=== PATIENT | female | born 1945 | race Caucasian/White ===

== ENCOUNTER 2018-02-10 12:30 | Emergency (ER) | payer MEDICARE ==
[~2018-02-10] VITALS: Ht 152.4 cm; Wt 49.9 kg
[2018-02-10] MEDS ORDERED: HYDROCODONE/APAP 5MG-325MG TAB PO ONE (12:45)
[2018-02-10] MEDS ORDERED: HYDROCODONE/APAP 5MG-325MG TAB PO NR (13:00)
--- NOTE | 2018-02-10 13:41 | Diagnostic Imaging Report ---
KNEE RIGHT THREE VIEWS - 3 views HISTORY: Pain. Foot. Fell from ladder. COMPARISON: None available. FINDINGS: Bones: No acute displaced fracture. Osseous alignment is within normal limits. Joints: The joint spaces are well-maintained. Moderate suprapatellar joint effusion. Soft tissues: The soft tissues appear unremarkable. IMPRESSION: No acute radiographic abnormality. Moderate suprapatellar joint effusion. Signed by: Dr. Jl Maya M.D. on 02/10/2018 1:38 PM
--- NOTE | 2018-02-10 13:43 | Diagnostic Imaging Report ---
FOOT RIGHT COMPLETE - 3 views HISTORY: Pain. COMPARISON: None available. FINDINGS: Bones: No acute displaced fracture. Osseous alignment is within normal limits. Dorsal calcaneal enthesophyte. Joints: The joint spaces are well-maintained. Soft tissues: Diffuse soft tissue swelling. IMPRESSION: Diffuse soft tissue swelling. No acute osseous abnormalities. Signed by: Dr. Jl Maya M.D. on 02/10/2018 1:40 PM
[2018-02-10] MEDS ORDERED: ULTRAM50 MG PO (13:56)
== END 2018-02-10 14:30 | disposition home or self-care (01) ==
LOC: ER 12:30
DX: S93.491A Sprain of other ligament of right ankle, initial encounter (principal); S83.411A Sprain of medial collateral ligament of right knee, initial encounter; S83.421A Sprain of lateral collateral ligament of right knee, initial encounter; W11.XXXA Fall on and from ladder, initial encounter; Y92.008 Other place in unspecified non-institutional (private) residence as the place of occurrence of the external cause
CPT/HCPCS: 99283

== ENCOUNTER 2018-04-20 08:27 | Inpatient (IN) | payer MEDICARE ==
[~2018-04-20] VITALS: Ht 152.4 cm; Wt 51.0 kg
[~2018-04-20 08:27] MED LIST: ULTRAM50 MG PO
--- OUTSIDE RECORDS SUMMARY | 2018-04-20 08:29 | XMS REPORT ---
Author Author [facility] Address Unknown Phone Unavailable Care Team Providers Care Production Supervisor Trainee Name Role Phone Leighann DON Unavailable Unavailable Problems This patient has no known problems. Allergies, Adverse Reactions, Alerts This patient has no known allergies or adverse reactions. Medications This patient has no known medications. Results Test Description Test Time Test Comments Text Results Atomic Results Result Comments FOOT RIGHT COMPLETE 2018-02-10 13:39:00 [facility] [address] [place] [address] Patient Name: CURRY KILPATRICK MR #: [id number] : 1945 Age/Sex: 73/F Req #: [id number] Adm Physician: Ordered by: JOHN DON MD Report #: [id number] Location: ER Room/Bed: Procedure: [id number] DX/FOOT RIGHT COMPLETE Exam Date: Exam Time: REPORT STATUS: Signed FOOT RIGHT COMPLETE - 3 views HISTORY: Pain. COMPARISON: None available. FINDINGS: Bones: No acute displaced fracture. Osseous alignment is within normal limits. Dorsal calcaneal enthesophyte. Joints: The joint spaces are well-maintained. Soft tissues: Diffuse soft tissue swelling. IMPRESSION: Diffuse soft tissue swelling. No acute osseous abnormalities. Signed by: Dr. Luis Manuel Maya M.D. on 02/10/2018 1:40 PM Dictated By: LUI SMANUEL MAYA MD 39 Transcribed By: MARILYN on 02/10/181339 COPY TO: JOHN DON MD KNEE RIGHT THREE VIEWS 2018-02-10 13:37:00 [place] [address] Patient Name: CURRY KILPATRICK MR #: [id number] : 1945 Age/Sex: 73/F Req #: [id number] Adm Physician: Ordered by: JOHN DON MD Report #: [id number] Location: ER Room/Bed: Procedure: [id number] DX/KNEE RIGHT THREE VIEWS Exam Date: Exam Time: REPORT STATUS: Signed KNEE RIGHT THREE VIEWS - 3 views HISTORY: Pain. Foot. Fell from ladder. COMPARISON: None available. FINDINGS: Bones: No acute displaced fracture. Osseous alignment is within normal limits. Joints: The joint spaces are well-maintained. Moderate suprapatellar joint effusion. Soft tissues: The soft tissues appear unremarkable. IMPRESSION: No acute radiographic abnormality. Moderate suprapatellar joint effusion. Signed by: Dr. Luis Manuel Maya M.D. on 02/10/2018 1:38 PM Dictated By: LUIS MANUEL MAYA MD 37 Transcribed By: MARILYN on 02/10/181337 COPY TO: JOHN DON MD
[2018-04-20] MEDS ORDERED: SODIUM CHLORIDE 0.9% 1000ML 1,000 ML IV STA (08:44)
[2018-04-20 09:08] LABS: BASOPHILS % 0.3 % (0.0-1.0); EOSINOPHILS % 0.2 % (0.0-6.0); HEMATOCRIT 36.1 % (34.2-44.1); HEMOGLOBIN 12.1 g/dL (12.0-16.0); LYMPHOCYTES # (AUTO) 0.9 (1.0-3.2); LYMPHOCYTES % 7.1 % (18.0-39.1); MEAN CORPUSCULAR HEMOGLOBIN 32.4 pg (28-32); MEAN CORPUSCULAR HGB CONC 33.5 g/dL (31-35); MEAN CORPUSCULAR VOLUME 96.5 fL (81-99); MONOCYTES # (AUTO) 1.2 (0.2-0.8); MONOCYTES % 10.2 % (4.4-11.3); NEUTROPHILS # (AUTO) 9.9 (2.1-6.9); NEUTROPHILS % 81.3 % (38.7-80.0); PLATELET COUNT 416 x10e3/uL (140-360); RED BLOOD COUNT 3.74 x10e6/uL (3.6-5.1); RED CELL DISTRIBUTION WIDTH 13.3 % (11.7-14.4)
--- NOTE | 2018-04-20 09:20 | Diagnostic Imaging Report ---
EXAMINATION: CHEST 2 VIEWS COMPARISON: None FINDINGS: TUBES and LINES: None. LUNGS: The lungs are mildly hyperinflated. Patchy consolidative opacity in the left lung base and mild patchy right basilar opacity. No evidence of pulmonary edema. Nodular opacities project over the right mid and left upper lung. PLEURA: No pleural effusion or pneumothorax. HEART AND MEDIASTINUM: The cardiomediastinal silhouette is unremarkable. BONES AND SOFT TISSUES: No acute osseous lesion. Soft tissues are unremarkable. UPPER ABDOMEN: No free air under the diaphragm. IMPRESSION: Multifocal patchy opacities, suspicious for pneumonia in a patient with cough. Additional nodular opacities in the right mid and left upper lung which could be infectious in the acute setting. Follow-up chest radiograph is recommended in 8 weeks to assess for resolution. Signed by: Dr. Ankit Davila MD on 04/20/2018 9:16 AM
[2018-04-20 09:29] LABS: ALANINE AMINOTRANSFERASE 38 IU/L (0-55); ALBUMIN 2.9 g/dL (3.5-5.0); ALBUMIN/GLOBULIN RATIO 0.6 (0.8-2.0); ALKALINE PHOSPHATASE 276 IU/L (40-150); ANION GAP 20.3 mmol/L (8-16); BLOOD UREA NITROGEN 12 mg/dL (7-26); BUN/CREATININE RATIO 15 (6-25); CALCIUM 9.9 mg/dL (8.4-10.2); CARBON DIOXIDE 24 mmol/L (22-29); CHLORIDE 97 mmol/L (98-107); CREATININE, SERUM 0.81 mg/dL (0.57-1.11); EST GLOMERULAR FILTRATION RATE > 60 ML/MIN (60-); GLUCOSE 95 mg/dL (74-118); POTASSIUM 4.3 mmol/L (3.5-5.1); SODIUM 137 mmol/L (136-145)
[2018-04-20] MEDS ORDERED: CEFTRIAXONE SOD 1 GM VIAL IV STA (09:35)
[2018-04-20] MEDS ORDERED: AZITHROMYCIN 500MG/NS 250 ML 250 ML IV STA (09:35)
[2018-04-20] MEDS ORDERED: CEFTRIAXONE SOD 1 GM/NS 50 ML 50 ML IV ONE (09:45)
[2018-04-20 09:49] LABS: THYROID STIMULATING HORMONE 1.075 uIU/mL (0.350-4.940)
[2018-04-20] MEDS ORDERED: ALBUTEROL SULF 0.083% NEB SOLN 3 ML NEB NEB STA (10:15)
[2018-04-20] MEDS ORDERED: IPRATROPIUM BROMIDE 0.02% 2.5 ML NEB NEB ONE (10:15)
[2018-04-20 11:06] LABS: CLARITY,URINE HAZY (CLEAR); COLOR,URINE YELLOW (YELLOW); LEUKOCYTE ESTERASE ,URINE NEGATIVE (NEGATIVE); NITRITE,URINE POSITIVE (NEGATIVE)
[2018-04-20 11:07] LABS: BACTERIA,URINE MODERATE /HPF; BILIRUBIN,URINE 1+ (NEGATIVE); EPITHELIAL CELLS,URINE MODERATE /LPF; KETONES,URINE 1+ (NEGATIVE); PROTEIN,URINE DIPSTICK 1+ (NEGATIVE); URINE UROBILINOGEN 1 mg/dL (0.2 - 1)
[2018-04-20] MEDS ORDERED: CEFTRIAXONE SOD 1 GM VIAL IV SCH (12:00)
[2018-04-20] MEDS ORDERED: AZITHROMYCIN 500MG/SOD CHL 0.9% 250ML BAG IV SCH (12:00)
[2018-04-20] MEDS: ALBUTEROL SULF 0.083% NEB SOLN 3 ML NEB NEB SCH ×3 (12:30→19:20)
[2018-04-20] MEDS: IPRATROPIUM BROMIDE 0.02% 2.5 ML NEB NEB SCH ×2 (12:57→19:20)
[2018-04-20 14:28] LABS: CREATINE KINASE MB 0.8 ng/mL (0-5.0)
[2018-04-20] MEDS: SODIUM CHLORIDE 0.9% 1000ML 1,000 ML IV SCH ×2 (15:30→19:54)
--- NOTE | 2018-04-20 17:05 | NUR ---
ATTEMPTED TO CALL REPORT, NURSE UNAVAILABLE AT THIS TIME. INFORMED MY CHARGE NURSE, DIEGO NAGEL.
--- NOTE | 2018-04-20 18:16 | NUR ---
REPORT CALLED TO DIEGO TREVINO. FLU SWAB COLLECTED AND SENT TO LAB. PT AWARE SPUTUM SAMPLE NEEDED.
[2018-04-20 18:39] VITALS: BP 167/76
--- NOTE | 2018-04-20 18:42 | NUR ---
PT ARRIVED TO FLOOR VIA STRETCHER, RESP EVEN AND UNLABORED AT THIS TIME, NO PAIN WHEN ASKED, NO SOB INDICATED, PT ABLE TO MAKE NEEDS KNOWN, PT HAS FAMILY MEMBER AT BEDSIDE, PT ORIENTED TO ROOM AND CALL LIGHT, BED IN LOWEST POSITION, BED RAILS UP X2, CALL LIGHT IN REACH.
--- NOTE | 2018-04-20 19:40 | NUR ---
REPORT GIVEN TO ONCOMING NURSE, FOR CONTINUED CARE.
--- NOTE | 2018-04-20 19:45 | NUR ---
Patient received sitting up in bed receiving breathing treatment; at bedside. Admission history and Initial Physical assessment conducted. Patient is alert and oriented x 3. No complaints of pain. No signs of respiratory distress. Patient oriented to room , call light and plan of care. IVF infusing at 125 cc / hr. Bed locked and in lowest position. Bed rails up x 2. Patient instructed to call for assistance when needed. Call light within reach.
[2018-04-20 20:00] VITALS: BP 157/69
[2018-04-20 20:15] VITALS: BP 157/69
[2018-04-20] MEDS: HEPARIN SOD (PORCINE) 5,000 UNIT/ML VIAL SC SCH (20:35)
[2018-04-20 20:44] VITALS: BP 157/69
--- NOTE | 2018-04-20 21:05 | NUR ---
Urine specimen sent to lab for analysis.
[2018-04-20] MEDS ORDERED: BENZONATATE 100 MG CAP PO STA (23:31)
--- NOTE | 2018-04-20 23:35 | NUR ---
Patient complained of cough and inability to sleep. Dr. Monika Todd notified. New orders received.
[2018-04-21] VITALS (8 sets, daily range): BP systolic 155–175; BP diastolic 69–86
[2018-04-21] MEDS: ZOLPIDEM TARTRATE 5 MG TAB PO PRN ×2 (00:06→20:25)
[2018-04-21] MEDS: IPRATROPIUM BROMIDE 0.02% 2.5 ML NEB NEB SCH ×2 (00:30→07:10)
[2018-04-21] MEDS: ALBUTEROL SULF 0.083% NEB SOLN 3 ML NEB NEB SCH ×4 (00:30→11:10)
[2018-04-21] MEDS: SODIUM CHLORIDE 0.9% 1000ML 1,000 ML IV SCH ×2 (03:54→11:54)
[2018-04-21 04:49] LABS: BASOPHILS % 0.3 % (0.0-1.0); EOSINOPHILS % 0.2 % (0.0-6.0); HEMATOCRIT 29.5 % (34.2-44.1); HEMOGLOBIN 9.7 g/dL (12.0-16.0); LYMPHOCYTES # (AUTO) 1.1 (1.0-3.2); LYMPHOCYTES % 9.5 % (18.0-39.1); MEAN CORPUSCULAR HGB CONC 32.9 g/dL (31-35); MEAN CORPUSCULAR VOLUME 97.4 fL (81-99); MONOCYTES # (AUTO) 1.1 (0.2-0.8); MONOCYTES % 9.2 % (4.4-11.3); NEUTROPHILS # (AUTO) 9.5 (2.1-6.9); NEUTROPHILS % 79.4 % (38.7-80.0); PLATELET COUNT 349 x10e3/uL (140-360); RED BLOOD COUNT 3.03 x10e6/uL (3.6-5.1); RED CELL DISTRIBUTION WIDTH 13.6 % (11.7-14.4)
[2018-04-21 05:05] LABS: ANION GAP 16.6 mmol/L (8-16); BLOOD UREA NITROGEN 7 mg/dL (7-26); BUN/CREATININE RATIO 10 (6-25); CALCIUM 8.5 mg/dL (8.4-10.2); CARBON DIOXIDE 21 mmol/L (22-29); CHLORIDE 105 mmol/L (98-107); CREATININE, SERUM 0.69 mg/dL (0.57-1.11); EST GLOMERULAR FILTRATION RATE > 60 ML/MIN (60-); GLUCOSE 97 mg/dL (74-118); POTASSIUM 3.6 mmol/L (3.5-5.1); SODIUM 139 mmol/L (136-145)
--- NOTE | 2018-04-21 06:39 | Diagnostic Imaging Report ---
EXAM: CHEST SINGLE (PORTABLE), AP 1 view INDICATION: Bad cough COMPARISON: AP view of the chest April 20, 2018 FINDINGS: LINES/TUBES: None LUNGS: Worsening bilateral airspace opacities. PLEURA: No effusions or pneumothorax. HEART AND MEDIASTINUM: Normal size and contour. BONES AND SOFT TISSUES: No acute findings. IMPRESSION: Worsening multifocal pneumonia. Signed by: Dr. Estefania Kenny M.D. on 04/21/2018 6:35 AM
--- NOTE | 2018-04-21 07:15 | NUR ---
Shift report given to oncoming nurse. Patient in stable condition.
[2018-04-21] MEDS: HEPARIN SOD (PORCINE) 5,000 UNIT/ML VIAL SC SCH ×2 (08:40→20:26)
--- NOTE | 2018-04-21 08:40 | NUR ---
PT RECEIVED LYING IN BED, AA/O X3. ASSESSMENT COMPLETE, VSS, TACHYCARDIC. IN NO APPARENT DISTRESS, RECEIVES NEB TREATMENTS. AMBULATES TOLERATED. CONTINUES IVABT.
[2018-04-21] MEDS ORDERED: CEFTRIAXONE SOD 1 GM/NS 50 ML 50 ML IV SCH (09:00)
[2018-04-21] MEDS ORDERED: BENZONATATE 100 MG CAP PO SCH (09:00)
[2018-04-21] MEDS: AZITHROMYCIN 500MG/NS 250 ML 250 ML IV SCH (09:15)
[2018-04-21] MEDS ORDERED: CEFEPIME HCL 2 GM VIAL IV SCH (13:15)
[2018-04-21] MEDS ORDERED: METHYLPREDNISOLONE SOD SUCC 40 MG/ML VIAL IV NR (13:30)
[2018-04-21] MEDS: CEFEPIME 2 GM/NS 0.9% 100 ML 100 ML IV SCH (14:07)
[2018-04-21] MEDS ORDERED: IPRATROPIUM BROMIDE 0.02% 2.5 ML NEB NEB SCH (15:00)
--- NOTE | 2018-04-21 15:00 | NUR ---
PT VOICED SHE CLEANS NEW 'S HOUSE AND REPORTED ALOT OF DUST AND POSSIBLE MOLD. SHE FEELS THIS MAY BE THE CAUSE OF HER COUGHING. ADVISED A SPUTUM CX SENT AND PENDING. ADVISED TO INFORM
[2018-04-21] MEDS: BENZONATATE 100 MG CAP PO SCH (16:56)
--- NOTE | 2018-04-21 17:28 | Diagnostic Imaging Report ---
EXAM: CT Chest without contrast COMPARISON: Chest radiograph 04/21/18. TECHNIQUE: Chest was scanned utilizing a multidetector helical scanner from the lung apex through the level of the adrenal glands without administration of IV contrast. Coronal and sagittal reformations were obtained. Routine protocol was performed. RADIATION DOSE: Total DLP: 226.6 mGy*cm COMPLICATIONS: None FINDINGS: LINES/ TUBES: None. LUNGS AND AIRWAYS: Multifocal patchy and consolidative opacities in all lobes, most confluent in the left lower lobe and lingula. Some of the opacities have a more nodular appearance, for example measuring up to 1.9 cm in the left lower lobe on series 2, image 65. Motion artifact limits evaluation of the central airways. No evidence of bronchiectasis. Mild smooth interlobular septal thickening bilaterally. Motion artifact limits evaluation for lungs nodules. PLEURA: Trace right pleural effusion. No evidence of pneumothorax. HEART AND MEDIASTINUM: The thyroid gland is normal. Prominent paratracheal lymph node measuring up to 1.1 cm and subcarinal lymph node measuring up to 1.5 cm, likely reactive. The heart is normal in size.. There is no pericardial effusion. Coronary atherosclerosis. Atherosclerotic calcifications of the thoracic aorta and branch vessels. UPPER ABDOMEN: Limited non-contrast views of the upper abdomen show no definite abnormality in the partially visualized liver or spleen. BONES/SOFT TISSUES: No acute bony findings. IMPRESSION: Findings consistent with multilobar pneumonia as above. Given somewhat nodular appearance of some areas of consolidation, follow-up imaging in 6-8 weeks to assess for resolution is recommended. No evidence of bronchiectasis as clinically queried. Mild interlobular septal thickening likely represent pulmonary interstitial edema. Trace right pleural effusion. Signed by: Dr. Ankit Davila MD on 04/21/2018 5:24 PM
[2018-04-22] VITALS (7 sets, daily range): BP systolic 151–170; BP diastolic 67–80
[2018-04-22] MEDS: BENZONATATE 100 MG CAP PO SCH ×2 (01:17→15:41)
[2018-04-22] MEDS: CEFEPIME 2 GM/NS 0.9% 100 ML 100 ML IV SCH ×2 (01:17→13:30)
[2018-04-22] MEDS: HEPARIN SOD (PORCINE) 5,000 UNIT/ML VIAL SC SCH ×2 (08:10→21:39)
[2018-04-22] MEDS: AZITHROMYCIN 500MG/NS 250 ML 250 ML IV SCH (08:10)
--- NOTE | 2018-04-22 08:10 | NUR ---
PT RECEIVED LYING IN BED, AA/O X3. ASSESSMENT COMPLETE, VSS. IN NO APPARENT RESP DISTRESS, RECEIVES NEB TREATMENTS. AMBULATES TOLERATED. CONTINUES IVABT.
[2018-04-22] MEDS ORDERED: CEFTRIAXONE SOD 1 GM VIAL IV SCH (14:00)
[2018-04-22] MEDS ORDERED: HYDRALAZINE HCL 20 MG/ML VIAL IV PRN (14:00)
[2018-04-22] MEDS ORDERED: CEFTRIAXONE SOD 1 GM/NS 50 ML 50 ML IV SCH (14:15)
[2018-04-22] MEDS: ZOLPIDEM TARTRATE 5 MG TAB PO PRN (22:05)
[2018-04-23] VITALS (9 sets, daily range): BP systolic 153–183; BP diastolic 70–90
[2018-04-23] MEDS: BENZONATATE 100 MG CAP PO SCH ×2 (01:30→16:38)
[2018-04-23 04:50] LABS: BASOPHILS # (AUTO) 0.1 (0.0-0.1); BASOPHILS % 0.3 % (0.0-1.0); HEMATOCRIT 31.6 % (34.2-44.1); HEMOGLOBIN 10.8 g/dL (12.0-16.0); LYMPHOCYTES % 5.7 % (18.0-39.1); MEAN CORPUSCULAR HEMOGLOBIN 32.2 pg (28-32); MEAN CORPUSCULAR HGB CONC 34.2 g/dL (31-35); MEAN CORPUSCULAR VOLUME 94.3 fL (81-99); MONOCYTES % 5.5 % (4.4-11.3); NEUTROPHILS # (AUTO) 15.1 (2.1-6.9); NEUTROPHILS % 83.7 % (38.7-80.0); PLATELET COUNT 413 x10e3/uL (140-360); RED BLOOD COUNT 3.35 x10e6/uL (3.6-5.1); RED CELL DISTRIBUTION WIDTH 13.6 % (11.7-14.4)
[2018-04-23 05:10] LABS: ANION GAP 15.5 mmol/L (8-16); BLOOD UREA NITROGEN 12 mg/dL (7-26); BUN/CREATININE RATIO 17 (6-25); CALCIUM 8.6 mg/dL (8.4-10.2); CARBON DIOXIDE 22 mmol/L (22-29); CHLORIDE 100 mmol/L (98-107); CREATININE, SERUM 0.71 mg/dL (0.57-1.11); EST GLOMERULAR FILTRATION RATE > 60 ML/MIN (60-); GLUCOSE 105 mg/dL (74-118); POTASSIUM 3.5 mmol/L (3.5-5.1); SODIUM 134 mmol/L (136-145)
--- NOTE | 2018-04-23 07:00 | NUR ---
RCD PT AT BED PT IS ALERT AND ORIENTED PT RESTING ON BED FAMILY AT BED SIDE BED LOW AND LOCKED CALL LIGHT IN REACH
[2018-04-23 07:36] LABS: BAND NEUTROPHILS % (MANUAL) 2 %; LYMPHOCYTES % (MANUAL) 4 % (19-48); METAMYELOCYTES % (MANUAL) 3 % (0-0); MONOCYTES % (MANUAL) 4 % (3.4-9.0); NEUTROPHILS % (MANUAL) 86 % (40-74)
[2018-04-23 07:37] LABS: ANISOCYTOSIS SLIGHT; HYPOCHROMASIA SLIGHT; PLATELET ESTIMATE ADEQUATE; PLATELET MORPHOLOGY COMMENT NORMAL; RBC MORPHOLOGY COMMENT NORMAL
[2018-04-23] MEDS: AZITHROMYCIN 500MG/NS 250 ML 250 ML IV SCH (09:00)
[2018-04-23] MEDS: HEPARIN SOD (PORCINE) 5,000 UNIT/ML VIAL SC SCH ×2 (09:00→20:52)
[2018-04-23] MEDS ORDERED: VANCOMYCIN 1GM/NS 250 ML 250 ML IV ONE (13:15)
[2018-04-23] MEDS ORDERED: SODIUM CHLORIDE 0.9% 1000ML 1,000 ML IV ONE (13:30)
[2018-04-23] MEDS: PIPER-TAZ 3.375 GM 50 ML IV SCH ×2 (14:00→21:18)
--- NOTE | 2018-04-23 14:29 | NUR ---
Reimbursement Coordinator to bedside to discuss plan of care with patient/family. CM/SW role and care transitions discussed. Anticipated discharge plan discussed along with duration of care. CM/SW discussed patients right to make decisions in care. CM/SW work hours given. Patient lives: with and daughter Admit/Transfer: thru ED, from home POA/Emergency contact: Cornelius Morrison [phone] Current/Previous Home Health: none PCP/Follow-up Care: no PCP, but states she will follow up at [facility] after discharge Current/Previous DME: none Other Services: none Employment Status: retired Areas of Concerns: pneumonia, hematuria Referral Needs: none at this time Education Needs: medical management IMM/JOHN given and signed (if applicable): none at this time Goal for discharge: home, will provide transportation CM/SW left business card at the bedside with contact information. Name and number was also written on the patients whiteboard. Patient verbalized understanding of discussion. CM will follow-up with ongoing discharge and transition of care needs.
--- NOTE | 2018-04-23 15:51 | Consultation ---
DATE OF CONSULTATION: PULMONARY CRITICAL CARE CONSULTATION CHIEF COMPLAINT: Bilateral infiltrates, fever and cough. HISTORY OF PRESENT ILLNESS: The patient is a 73-year-old woman with no past medical history. She states that about 3 to 4 weeks ago she was cleaning an old house and swallowed some dust. Since that time, she has noted a cough and congestion. It has been gradually progressing over 3 to 4 weeks. She noticed some mild fevers and a decreased appetite. She came to the emergency department 2 days ago and started receiving IV antibiotics with minimal benefit. PAST SURGICAL HISTORY: Status post tonsillectomy as a child. PAST MEDICAL HISTORY 1. No prior respiratory problems. 2. No regular medication use. ALLERGIES: NO KNOWN DRUG ALLERGIES. SOCIAL HISTORY: The patient is not a smoker. She is not a drinker. She does not have any birds at home. She has no recent travel. No one else has been sick at home. FAMILY HISTORY: Noncontributory. REVIEW OF SYSTEMS: Patient reports decreased appetite and low-grade fevers at home. She has no headache. She does not complain of sore throat. There is no swollen glands. Lymphatic examination shows she has no pain in her chest. She does note a cough productive of very small amounts of phlegm. She has dyspnea. There is no abdominal pain. No nausea or vomiting. No leg swelling. No rashes. PHYSICAL EXAMINATION VITAL SIGNS: The patient is afebrile. Vital signs are stable. The T-max is 99.7 on April 21, 2018. HEENT: Shows no facial swelling or erythema. The nasal mucosa is normal. The oropharynx is normal. LYMPHATIC: Shows no submandibular, cervical or supraclavicular adenopathy. NECK: Shows no JVD or thyromegaly. There is no nuchal rigidity. CARDIAC: Reveals regular rate and rhythm with a normal S1 and S2. LUNGS: Reveals a few crackles at both bases. There is no wheezing. ABDOMEN: Soft and nontender. There is no rebound or guarding. EXTREMITIES: Shows no leg edema or calf tenderness. There is no cyanosis or clubbing. SKIN: Shows no rashes. NEUROLOGIC: Shows no focal abnormalities. RADIOGRAPHIC DATA: CT scan of the chest shows multifocal infiltrates most pronounced in the left lower lobe lingula. LABORATORY DATA: Urinalysis shows specific gravity of 1.015 with trace blood and 11-20 white blood cells. The sodium is 134 and the BUN to creatinine ratio is normal. The other electrolytes are within normal limits. Liver function tests are normal except for an alk phos of 276. White blood cell count is 18 and the hemoglobin is 10.8 with an MCV of 94.3. The platelet count is 413,000. IMPRESSION 1. Community-acquired multilobar pneumonia with sepsis present on admission. 2. Leukocytosis. PLAN 1. Continue antibiotics. 2. Patient should have a nasopharyngeal aspirate for influenza culture; the rapid flu does not exclude a influenza completely. 3. Nasal swab for MRSA and vancomycin temporarily until staph has been ruled out. 4. Swallowing evaluation to rule out aspiration. 5. Repeat chest x-ray tomorrow. 6. Await final sputum culture results. Job#: [id number] NICK
--- NOTE | 2018-04-23 18:39 | NUR ---
PT RESTING ON BED BED SIDE REPORT GIVEN TO ONCOMING NURSE
--- NOTE | 2018-04-23 19:00 | NUR ---
Received change of shift report from AM nurse. Walking rounds completed.
--- NOTE | 2018-04-23 21:00 | NUR ---
Patient AAOx3. IV to left wrist dry and intact. NS at 100cc/hr. Family at bedside. Pt denies pain at this time.
[2018-04-24] VITALS (7 sets, daily range): BP systolic 135–153; BP diastolic 63–72
[2018-04-24 04:35] LABS: BASOPHILS % 0.3 % (0.0-1.0); EOSINOPHILS % 0.1 % (0.0-6.0); HEMATOCRIT 32.5 % (34.2-44.1); HEMOGLOBIN 10.9 g/dL (12.0-16.0); LYMPHOCYTES # (AUTO) 1.2 (1.0-3.2); LYMPHOCYTES % 8.6 % (18.0-39.1); MEAN CORPUSCULAR HGB CONC 33.5 g/dL (31-35); MEAN CORPUSCULAR VOLUME 95.3 fL (81-99); MONOCYTES # (AUTO) 0.9 (0.2-0.8); MONOCYTES % 6.1 % (4.4-11.3); NEUTROPHILS # (AUTO) 11.6 (2.1-6.9); NEUTROPHILS % 80.6 % (38.7-80.0); PLATELET COUNT 365 x10e3/uL (140-360); RED BLOOD COUNT 3.41 x10e6/uL (3.6-5.1); RED CELL DISTRIBUTION WIDTH 13.6 % (11.7-14.4)
[2018-04-24 04:57] LABS: ALANINE AMINOTRANSFERASE 33 IU/L (0-55); ALBUMIN 2.2 g/dL (3.5-5.0); ALBUMIN/GLOBULIN RATIO 0.5 (0.8-2.0); ALKALINE PHOSPHATASE 167 IU/L (40-150); ANION GAP 16.5 mmol/L (8-16); BLOOD UREA NITROGEN 7 mg/dL (7-26); BUN/CREATININE RATIO 10 (6-25); CALCIUM 8.4 mg/dL (8.4-10.2); CARBON DIOXIDE 23 mmol/L (22-29); CHLORIDE 102 mmol/L (98-107); CREATININE, SERUM 0.72 mg/dL (0.57-1.11); EST GLOMERULAR FILTRATION RATE > 60 ML/MIN (60-); GLUCOSE 91 mg/dL (74-118); POTASSIUM 3.5 mmol/L (3.5-5.1); SODIUM 138 mmol/L (136-145)
[2018-04-24] MEDS: PIPER-TAZ 3.375 GM 50 ML IV SCH ×3 (05:27→21:27)
--- NOTE | 2018-04-24 06:23 | NUR ---
Patient resting quitly with no c/o. Patient states I feel better.
--- NOTE | 2018-04-24 07:10 | NUR ---
RCD PT AT BED PT IS ALERT AND ORIENTED PT RESTING ON BED FAMILY AT BED SIDE BED LOW AND LOCKED CALL LIGHT IN REACH
[2018-04-24] MEDS ORDERED: SODIUM CHLORIDE 0.9% 250ML 250 ML ONE (08:49)
[2018-04-24] MEDS: HEPARIN SOD (PORCINE) 5,000 UNIT/ML VIAL SC SCH ×2 (09:00→21:28)
[2018-04-24] MEDS: BENZONATATE 100 MG CAP PO SCH ×2 (09:00→16:29)
[2018-04-24] MEDS: AZITHROMYCIN 500MG/NS 250 ML 250 ML IV SCH (09:00)
--- NOTE | 2018-04-24 09:01 | Diagnostic Imaging Report ---
EXAM: CHEST 2 VIEWS INDICATION: Pneumonia COMPARISON: CT Chest 04/21/18 and Chest radiograph 04/21/18. FINDINGS: LINES/TUBES: None LUNGS: The lungs are mildly hyperinflated. There are multifocal opacities, slightly less confluent in the left lower lung and slightly increased in the right lower lung. No significant pulmonary edema. PLEURA: No effusions or pneumothorax. HEART AND MEDIASTINUM: Unchanged cardiomediastinal silhouette. Atherosclerotic calcifications of the aortic arch. BONES AND SOFT TISSUES: No acute bony findings. IMPRESSION: Multifocal pneumonia, slightly less confluent in the left lower lung and slight increased in the right lower lung. Signed by: Dr. Ankit Davila MD on 04/24/2018 8:58 AM
--- NOTE | 2018-04-24 18:42 | NUR ---
PT RESTING ON BED BED SIDE REPORT GIVEN TO ONCOMING NURSE
[2018-04-25] VITALS (9 sets, daily range): BP systolic 116–160; BP diastolic 58–72
[2018-04-25] MEDS: PIPER-TAZ 3.375 GM 50 ML IV SCH ×3 (06:23→22:30)
--- NOTE | 2018-04-25 07:00 | NUR ---
RCD PT AT BED PT IS ALERT AND ORIENTED PT RESTING ON BED FAMILY AT BED SIDE BED LOW AND LOCKED CALL LIGHT IN REACH
[2018-04-25] MEDS: BENZONATATE 100 MG CAP PO SCH ×2 (09:00→16:17)
[2018-04-25] MEDS: HEPARIN SOD (PORCINE) 5,000 UNIT/ML VIAL SC SCH ×2 (09:00→22:30)
[2018-04-25] MEDS: AZITHROMYCIN 500MG/NS 250 ML 250 ML IV SCH (09:00)
[2018-04-25] MEDS: LACTOBACILLUS ACIDOPHILUS CAPSULE PO SCH ×2 (15:00→22:30)
--- NOTE | 2018-04-25 18:40 | NUR ---
PT RESTING ON BED BED SIDE REPORT GIVEN TO ONCOMING NURSE
--- NOTE | 2018-04-25 18:53 | NUR ---
Nutrition Intervention Note RD Recommendation(s) for Physician: -Continue regular diet as ordered -Rec Ensure Compact BID to promote PO intake The patient meets criteria for MODERATE protein-calorie malnutrition. Plan of Care: RD following, monitoring for tolerance and adequacy, ONS rec Nutrition reason for involvement: LOS RD Assessment 04/25 Chart reviewed. 73yo F, who is admitted for cough and fever. Pt passed swallow study. Visited pt in the room. Pt reports of slight improvement in her appetite. RN recorded ~25-75% PO intake since admission. Pt has had decreased appetite for over a month with ~5lbs weight loss. 4.5% weight loss in 1 month, insignificant. Pt states I am never a big person and I am not a big eater. No GI complains noted. LBM 1/2. Pt denies any chewing or swallowing difficulty. Upon NFPA, pt has some clavicle protrusion and slight temporal depression, otherwise unremarkable. Will continue to monitor and follow. Principal Problems/Diagnoses: 1. Community-acquired multilobar pneumonia 2. Leukocytosis. PMH: None per chart GI: abdomen flat, soft, non-tender, LBM 1/2 Skin: intact Labs: (04/25) glucose 152 Meds: probiotics, abx Ht: 60in Wt: 114.31lb BMI: 22.3kg/m2 IBW: 100lb Malnutrition Evaluation (04/25/2018) The patient meets criteria for MODERATE protein-calorie malnutrition. Energy intake: <75% of estimated energy requirements for >1 month Weight loss: 5lbs weight loss in 1 month; 4.5% - insignificant Fat loss: Mild-Moderate: some protrusion of clavicle Muscle loss: Mild-Moderate: some protrusion of clavicle and temporal depression Supporting Evidence: Fluid accumulation: none Functional Status: no changes Nutrition Prescription (Diet Order): regular diet Diet Adequacy: Not meeting calorie needs, Not meeting protein needs Diet Education Needs Assessment: Diet education not indicated; patient on regular diet. Nutrition Care Level: low Nutrition Diagnosis: Inadequate oral intake related to current medical status as evidenced by pt reports of decreased appetite x1 month. Goal: Patient will meet 75-100% of estimated needs by follow up Progress: Progressing Interventions: General healthful diet, Commercial beverage Monitoring/Evaluation: Total energy intake, Total protein intake, diet, Liquid supplement, Weight change Signed: Vidya Way MS, RD, LD
--- NOTE | 2018-04-25 19:26 | NUR ---
Patient received sitting up in bed. No acute distress noted. Fall /safety precautions maintained. Call light within reach.
[2018-04-26] VITALS: BP 147/68
[2018-04-26 04:00] VITALS: BP 144/67
[2018-04-26] MEDS: PIPER-TAZ 3.375 GM 50 ML IV SCH (05:39)
--- NOTE | 2018-04-26 07:00 | NUR ---
SHIFT REPORT RECEIVED FROM NIGHT RN. PT DENIES NEEDS AT THIS TIME.
--- NOTE | 2018-04-26 07:26 | NUR ---
Shift report given to oncoming nurse. Patient resting comfortably.
[2018-04-26 07:54] VITALS: BP 156/70
[2018-04-26 09:00] VITALS: BP 156/70
[2018-04-26] MEDS: AZITHROMYCIN 500MG/NS 250 ML 250 ML IV SCH (09:14)
[2018-04-26] MEDS: LACTOBACILLUS ACIDOPHILUS CAPSULE PO SCH (09:14)
[2018-04-26] MEDS: BENZONATATE 100 MG CAP PO SCH (09:14)
[2018-04-26] MEDS: HEPARIN SOD (PORCINE) 5,000 UNIT/ML VIAL SC SCH (09:16)
--- NOTE | 2018-04-26 09:54 | NUR ---
IMM letter delivered and explained to pt. She stated she's hoping she will get discharged today and verbalized understanding of Medicare Rights. Signed copy placed in chart. Copy to pt.
--- NOTE | 2018-04-26 11:00 | Discharge Summary ---
PRIMARY CARE DOCTOR: Dr. Mary Gordon with [facility]. FINAL DIAGNOSIS: Sepsis present on admission due to multifocal pneumonia. CONSULTANTS: Dr. Paredes, reimbursement liaison PROCEDURES/STUDIES PERFORMED 1. Modified barium swallow study. 2. Chest computerized tomography. HISTORY: Per H and P. HOSPITAL COURSE: The patient was admitted. Initially, she was on IV Rocephin and IV azithromycin. However, the patient did not progress as expected. Therefore, CT was done to rule out bronchiectasis. This was not present. However, the patient continued to improve as expected. Therefore, her antibiotic was changed to Zosyn. Pulmonology was consulted. Modified barium was done, which was negative for silent aspiration. Finally, the patient now is getting better. She does have some antibiotic associated diarrhea. No abdominal pain. Therefore, this is nauseated. The patient will go home on Levaquin and Flagyl for 5 more days. The patient will follow up with her primary care doctor in 1 week. The patient was seen and examined today. It took 32 minutes total to discharge this patient. CONDITION ON DISCHARGE: Stable. DISCHARGE MEDICATIONS: Please see medication reconciliation form. ANU GAMBLE M.D. Job#: [id number] RI cc:MARY GORDON MD
[2018-04-26 11:37] VITALS: BP 117/60
[2018-04-26] MEDS ORDERED: LEVAQUIN500 MG PO (12:04)
[2018-04-26] MEDS ORDERED: FLAGYL250 MG (12:05)
--- NOTE | 2018-04-26 16:51 | Diagnostic Imaging Report ---
PROCEDURE: X-RAY MODIFIED BARIUM SWALLOW COMPARISON: None. INDICATION: Pneumonia. Radiation Details: Fluoroscopy time: 57 seconds Cumulative air kerma: 0.61 mGy Dose area product: 22.94 cGycm2 DISCUSSION: Fluoroscopic examination was performed in conjunction with speech pathology during swallowing a variety of thin and thick liquid consistencies. Provided images demonstrate no evidence of penetration or aspiration. CONCLUSION: Modified barium swallow demonstrating no evidence of penetration or aspiration. Please refer to the speech pathology report for further details. Signed by: Dr. Ankit Davila MD on 04/26/2018 4:48 PM
== END 2018-04-26 12:45 | disposition home or self-care (01) | DRG 871 ==
LOC: ER 08:27 → ERHOLD 13:15 → MED/SURG2 18:25
PROVIDERS: ADMIT Internal Medicine; ATTEND Internal Medicine
DX: A41.9 Sepsis, unspecified organism (principal); J18.9 Pneumonia, unspecified organism; E44.0 Moderate protein-calorie malnutrition; Z68.21 Body mass index [BMI] 21.0-21.9, adult; R53.81 Other malaise
CPT/HCPCS: 36415; 71045; 71046; 71250; 74230; 80048; 80053; 81001; 82550; 82553; 82948; 83880; 84443; 84484; 85025; 87040; 87070; 87081; 87086; 87205; 87299; 87400; 87449; 94640; 99284; J0360; J0456; J0696; J1644; J2543; J2920; J3370; J7030; J7050

== ENCOUNTER 2024-04-05 10:38 | Inpatient (IN) | payer MEDICARE ==
[~2024-04-05] VITALS: Ht 152.4 cm; Wt 50.3 kg
[~2024-04-05 10:38] MED LIST changes: +FLAGYL250 MG; +LEVAQUIN500 MG PO
[2024-04-05 10:45] VITALS: RESP 17; TEMP 98.1
[2024-04-05] MEDS ORDERED: SODIUM CHLORIDE 0.9% 1000ML 1,000 ML IV SCH (13:15)
[2024-04-05 13:32] LABS: BASOPHILS % 0.3 % (0.0-1.0); HEMATOCRIT 41.2 % (34.2-44.1); HEMOGLOBIN 13.2 g/dL (12.0-16.0); LYMPHOCYTES % 8.4 % (18.0-39.1); MEAN CORPUSCULAR HEMOGLOBIN 33.8 pg (28-32); MEAN CORPUSCULAR VOLUME 105.4 fL (81-99); MONOCYTES % 9.1 % (4.4-11.3); NEUTROPHILS # (AUTO) 9.2 (2.1-6.9); NEUTROPHILS % 81.9 % (38.7-80.0); PLATELET COUNT 201 x10e3/uL (140-360); RED BLOOD COUNT 3.91 x10e6/uL (3.6-5.1); RED CELL DISTRIBUTION WIDTH 12.2 % (11.7-14.4); WHITE BLOOD COUNT 11.27 x10e3/uL (4.8-10.8)
[2024-04-05 13:44] LABS: INR 0.91; PARTIAL THROMBOPLASTIN TIME 25.1 seconds (23.8-35.5); PROTHROMBIN TIME 12.8 seconds (11.9-14.5)
[2024-04-05 13:54] LABS: ALBUMIN 4.2 g/dL (3.5-5.0); ALBUMIN/GLOBULIN RATIO 1.2 (0.8-2.0); ANION GAP 16.3 mmol/L (8-16); BILIRUBIN,TOTAL 0.8 mg/dL (0.2-1.2); CALCIUM 9.9 mg/dL (8.4-10.2); CREATININE, SERUM 0.88 mg/dL (0.57-1.11); TOTAL PROTEIN 7.6 g/dL (6.5-8.1)
[2024-04-05 13:59] LABS: TROPONIN I 0.001 ng/mL (0-0.300)
[2024-04-05 14:00] LABS: POTASSIUM 5.3 mmol/L (3.5-5.1)
[2024-04-05] MEDS ORDERED: Morphine 2mg Syringe 2 MG/ML SYR IV PRN (14:45)
[2024-04-05] MEDS ORDERED: ONDANSETRON HCL INJ 2MG/ML 2ML 2 MG/ML VIAL IV PRN (14:45)
[2024-04-05] MEDS: Morphine 2mg Syringe 2 MG/ML SYR IV STA (15:08)
[2024-04-05] MEDS: ONDANSETRON HCL INJ 2MG/ML 2ML 2 MG/ML VIAL IV STA (15:09)
[2024-04-05 16:02] VITALS: PULSE 91
[2024-04-05 16:45] VITALS: BP 132/58; O2SAT 99
[2024-04-05 16:46] VITALS: BP 108/66; PULSE 86; RESP 17; TEMP 97.4; O2SAT 99
[2024-04-05] MEDS ORDERED: LISINOPRIL-HCT1 EAC2 PO (16:49)
[2024-04-05] MEDS ORDERED: ALENDRONATE SOD70 MG PO (16:49)
[2024-04-05] MEDS ORDERED: SIMVASTATIN20 MG PO (16:49)
[2024-04-05] MEDS: SODIUM CHLORIDE 0.9% 1000ML 1,000 ML IV SCH (16:56)
[2024-04-05 20:00] VITALS: BP 128/54; PULSE 91; RESP 16; TEMP 98; O2SAT 99
[2024-04-05] MEDS: SIMVASTATIN 20 MG TAB PO SCH (20:52)
[2024-04-05 22:25] VITALS: BP 128/54; PULSE 91; RESP 16; TEMP 98; O2SAT 99
[2024-04-06] VITALS (7 sets, daily range): BP systolic 111–129; BP diastolic 56–87; PULSE 78–88; RESP 16–19; TEMP 97.6–98.1; O2SAT 98–100
[2024-04-06 06:01] LABS: BASOPHILS % 0.4 % (0.0-1.0); EOSINOPHILS % 0.2 % (0.0-6.0); HEMATOCRIT 37.1 % (34.2-44.1); HEMOGLOBIN 12.3 g/dL (12.0-16.0); LYMPHOCYTES # (AUTO) 1.2 (1.0-3.2); LYMPHOCYTES % 12.7 % (18.0-39.1); MEAN CORPUSCULAR HGB CONC 33.2 g/dL (31-35); MEAN CORPUSCULAR VOLUME 102.5 fL (81-99); MONOCYTES % 10.4 % (4.4-11.3); PLATELET COUNT 197 x10e3/uL (140-360); RED BLOOD COUNT 3.62 x10e6/uL (3.6-5.1); RED CELL DISTRIBUTION WIDTH 12.3 % (11.7-14.4)
[2024-04-06 06:21] LABS: ALBUMIN 3.6 g/dL (3.5-5.0); ALBUMIN/GLOBULIN RATIO 1.1 (0.8-2.0); ANION GAP 14.6 mmol/L (8-16); BILIRUBIN,TOTAL 0.7 mg/dL (0.2-1.2); CALCIUM 8.8 mg/dL (8.4-10.2); CREATININE, SERUM 0.84 mg/dL (0.57-1.11); POTASSIUM 4.6 mmol/L (3.5-5.1); TOTAL PROTEIN 6.8 g/dL (6.5-8.1)
[2024-04-06 06:28] LABS: TROPONIN I 0.017 ng/mL (0-0.300)
[2024-04-06] MEDS: LISINOPRIL 10 MG TAB PO SCH (09:00)
[2024-04-07] VITALS (7 sets, daily range): BP systolic 130–171; BP diastolic 54–83; PULSE 70–99; RESP 16–20; TEMP 96.2–99.1; O2SAT 98–100
[2024-04-07] MEDS ORDERED: TRAMADOL HCL 50 MG TAB PO PRN (11:45)
[2024-04-07] MEDS: HYDRALAZINE HCL 20 MG/ML VIAL IV PRN (15:58)
[2024-04-07] MEDS: ACETAMINOPHEN 325 MG TAB PO PRN (21:23)
[2024-04-08 06:15] VITALS: BP 109/65; PULSE 78; RESP 20; TEMP 98.6; O2SAT 98
[2024-04-08 07:41] VITALS: BP 124/71; PULSE 82; RESP 21; TEMP 97.9; O2SAT 100
[2024-04-08 07:43] VITALS: BP 124/71; PULSE 82; RESP 21; TEMP 97.9; O2SAT 100
[2024-04-08 11:53] VITALS: BP 132/55; PULSE 86; RESP 17; TEMP 97.8; O2SAT 98
[2024-04-08] MEDS ORDERED: ONDANSETRON HCL 4 MG ORAL DISINTEGRATING TAB PO PRN (13:30)
== END 2024-04-08 13:15 | disposition home or self-care (01) | DRG 536 ==
LOC: ER 10:44 → ERHOLD 14:39 → MED/SURG 16:22
PROVIDERS: ADMIT Internal Medicine; ATTEND Internal Medicine
DX: S72.114A Nondisplaced fracture of greater trochanter of right femur, initial encounter for closed fracture (principal); I10 Essential (primary) hypertension; E78.00 Pure hypercholesterolemia, unspecified; E87.5 Hyperkalemia; M19.90 Unspecified osteoarthritis, unspecified site; W01.0XXA Fall on same level from slipping, tripping and stumbling without subsequent striking against object, initial encounter; Y92.019 Unspecified place in single-family (private) house as the place of occurrence of the external cause
CPT/HCPCS: 36415; 70450; 72125; 72192; 80053; 82550; 84484; 85025; 85610; 85730; 99285; J0360; J7030